=== PATIENT | female | born 1995 | race American Indian/Alaskan Native ===

== ENCOUNTER 2017-05-24 16:03 | Emergency (ER) | payer SELFPAY ==
[2017-05-24 16:24] LABS: BILIRUBIN,URINE NEGATIVE (NEGATIVE); PH,URINE 5.5 PH (5.0-7.5)
[2017-05-24] MEDS ORDERED: LIDOCAINE 1% 2 ML VIAL ONE (16:24)
[2017-05-24] MEDS ORDERED: AZITHROMYCIN 250 MG TABLET PO ONE (16:24)
[2017-05-24] MEDS ORDERED: cefTRIAXone 250 MG VIAL ONE (16:25)
[2017-05-24] MEDS: cefTRIAXone 250 MG VIAL IM STA (16:25)
[2017-05-24] MEDS: AZITHROMYCIN 250 MG TABLET PO STA (16:25)
[2017-05-24 16:26] LABS: HCG UR QUAL NEGATIVE; UA CHARGE (STRIP ONLY) YES; UR CULTURE IF IND NOT INDICATED
--- NOTE | 2017-05-24 16:32 | ED Physician Documentation ---
PD HPI FEMALE - Stated complaint Stated Complaint: FEMALE - Chief complaint Chief Complaint: General - History obtained from History obtained from: Patient - History of Present Illness Timing - onset: How many days ago Timing - duration: Days (several) Pain level max: 0 Pain level max: 0 Associated symptoms: No: Fever, Abdominal pain, Back pain Contributing factors: No: , control, Oral contraceptive, Tubal ligation, Hysterectomy Recently seen: Not recently seen - Additional information Additional information: Patient is a 22-year-old female who states that her boyfriend was recently treated for chlamydia. States that she is here to be treated for same. Unknown if he was treated for gonorrhea as well. She does state she has a slight discharge, no itching, no burning. No abdominal pain. No fever. No chance of . 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 - Present Medications Home Medications: Ambulatory Orders Medication Instructions Recorded Confirmed No Known Home Medications [No 05/24/17 05/24/17 Known Home Medications] - Allergies Allergies/Adverse Reactions: Allergies Allergy/AdvReac Type Severity Reaction Status Date / Time No Known Drug Allergies Allergy Verified 05/24/17 16:15 - Social History Does the pt smoke?: Yes Smoking Status: Current every day smoker Does the pt have substance abuse?: Yes Substance Use and Type: Marijuana - Immunizations Immunizations: TDAP >10years/unknown PD ED PE NORMAL - Vitals Vital signs reviewed: Yes - General General: Alert and oriented X 3, No acute distress, Well developed/nourished - HEENT HEENT: Moist mucous membranes - Neck Neck: Supple, no meningeal sign - Cardiac Cardiac: RRR, Strong equal pulses - Respiratory Respiratory: No respiratory distress, Clear bilaterally - Abdomen Abdomen: Soft, Non tender, Non distended - Female Female : Pt declined - Derm Derm: Warm and dry, No rash - Neuro Neuro: Alert and oriented X 3 - Psych Psych: Normal mood, Normal affect Results - Vitals Vitals: Vital Signs - 24 hr 05/24/17 05/24/17 16:10 16:49 Temperature 36.9 C Heart Rate 108 H 91 Respiratory 18 16 Rate Blood Pressure 120/80 106/71 O2 Saturation 100 100 Oxygen O2 Source Room air - Labs Labs: Laboratory Tests 05/24/17 16:15 Urine Color YELLOW Urine Clarity CLEAR Urine pH 5.5 Ur Specific [place] >=1.030 H Urine Protein NEGATIVE Urine Glucose (UA) NEGATIVE Urine Ketones NEGATIVE Urine Occult Blood NEGATIVE Urine Nitrite NEGATIVE Urine Bilirubin NEGATIVE Urine Urobilinogen 0.2 (NORMAL) Ur Leukocyte Esterase NEGATIVE Ur Microscopic Review NOT INDICATED Urine Culture Comments NOT INDICATED Urine HCG, Qual NEGATIVE PD MEDICAL DECISION MAKING - ED course Complexity details: considered differential, d/w patient ED course: Patient is a 22-year-old female who presents to the emergency department complaining of chlamydia exposure. We will treat her for gonorrhea and chlamydia, given Rocephin and azithromycin. Urine sent for gonorrhea and Chlamydia testing. Declines a pelvic exam, has no pelvic pain or abdominal pain. She will follow-up with her doctor for a complete pelvic exam and STD check including HIV. She is well-appearing, nontoxic. Afebrile. Patient informed to use condoms for sexual activity and informed her that all partners should be tested and treated as well. Patient counseled regarding signs and symptoms for which I believe and urgent re-evaluation would be necessary. Patient with good understanding of and agreement to plan and is comfortable going home at this time This document was made in part using voice recognition software. While efforts are made to proofread this document, sound alike and grammatical errors may occur. Departure - Departure Disposition: 01 Home, Self Care Clinical Impression: STD exposure Condition: Good Instructions: ED Chlamydia GC Poss Culture Pend Follow-Up: your,doctor in 1 week for further testing [Other] Comments: You need have further testing with your doctor for other STDs and HIV. use condoms for sexual activity. Return if you worsen. Discharge Date/Time: 05/24/17 17:01
[2017-05-24 16:56] VITALS: BP 106/71
== END 2017-05-24 17:01 | disposition home or self-care (01) ==
LOC: ED 16:03
DX: Z20.2 Contact with and (suspected) exposure to infections with a predominantly sexual mode of transmission (principal)
CPT/HCPCS: 81001; 81003; 81025; 87086; 87491; 87591; 96372; 99283